=== PATIENT | male | born 1985 | race Two or more races ===

== ENCOUNTER 2017-09-13 05:34 | Emergency (ER) | payer BC ==
[~2017-09-13] VITALS: Ht 170.2 cm; Wt 83.5 kg
--- NOTE | 2017-09-13 06:02 | NUR ---
XRAY TO PT BEDSIDE
--- NOTE | 2017-09-13 06:13 | NUR ---
MD TO PT BEDSIDE
[2017-09-13] MEDS ORDERED: LIDOCAINE /MPF 1% VIAL 5 ML VIAL ONE ×3 (06:16→06:51)
[2017-09-13] MEDS ORDERED: IBUPROFEN 600 MG TABLET PO ONE ×2 (06:16→06:30)
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
--- NOTE | 2017-09-13 07:29 | NUR ---
DR PAGAN AT BEDSIDE CLEANING RT 3RD AND 4TH NAIL BEDS. PT RESTING COMFORTABLY.
[2017-09-13] MEDS ORDERED: TDAP [DIPH/PERTUSSIS/TET] 0.5 ML VIAL IM ONE ×2 (07:30→07:38)
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
[2017-09-13 07:59] VITALS: BP 117/65
== END 2017-09-13 07:50 | disposition home or self-care (01) ==
LOC: ER 05:38
DX: S62.632A Displaced fracture of distal phalanx of right middle finger, initial encounter for closed fracture (principal); S62.634A Displaced fracture of distal phalanx of right ring finger, initial encounter for closed fracture; W23.1XXA Caught, crushed, jammed, or pinched between stationary objects, initial encounter; Y93.01 Activity, walking, marching and hiking; Y92.89 Other specified places as the place of occurrence of the external cause; Y99.8 Other external cause status
CPT/HCPCS: 73130-TC; 90715; A4217; A4606; A6402; J3490; Z7610